=== PATIENT | female | born 1970 | race African-American/Black ===

== ENCOUNTER 2024-11-22 21:46 | Emergency (ER) | payer BC ==
[~2024-11-22] VITALS: Ht 167.6 cm; Wt 89.2 kg
[2024-11-22 21:54] VITALS: TEMP 37; O2SAT 99
[2024-11-22 23:59] LABS: CREATININE 1.0 mg/dL (0.6-1.0); UREA NITROGEN BLOOD 15 mg/dL (9-23)
[2024-11-23 00:01] LABS: ASPARTATE AMINOTRANSFERASE 21 IU/L (<34); BILIRUBIN DIRECT 0.1 mg/dL (<=3.0); BILIRUBIN TOTAL 0.3 mg/dL (0.1-1.0); PROTEIN TOTAL 8.5 g/dL (6.0-8.3)
[2024-11-23 02:22] LABS: BASOPHILS % 0.7 % (0.0-2.0); EOSINOPHILS % 0.1 % (0.0-5.0); HEMATOCRIT. 36.0 % (36.0-48.0); HEMOGLOBIN. 11.7 g/dL (12.0-16.0); LYMPHOCYTES % 20.2 % (20.0-50.0); MEAN PLATELET VOLUME 8.4 fl (7.4-10.4); MONOCYTES % 6.3 % (2.0-8.0); NEUTROPHILS % 72.7 % (40.0-76.0); PLATELET 290 x1000/uL (130-400); RED BLOOD CELL COUNT 4.46 mill/uL (4.2-5.4); RED CELL DISTRIBUTION WIDTH 15.8 % (11.6-14.6)
[2024-11-23 02:33] LABS: HCG SCREEN INDETERMINATE
[2024-11-23] MEDS ORDERED: METO-293 MT (03:40)
[2024-11-23] MEDS ORDERED: PROT20 MT (03:40)
[2024-11-23 03:51] VITALS: BP 164/63; PULSE 67; RESP 14; O2SAT 100
== END 2024-11-23 03:52 | disposition home or self-care (01) ==
LOC: ER 21:46
DX: A05.9 Bacterial foodborne intoxication, unspecified (principal); R11.2 Nausea with vomiting, unspecified; Z98.84 Bariatric surgery status; Z79.899 Other long term (current) drug therapy
CPT/HCPCS: 36415; 80048; 80076; 84703; 85025; 99283